=== PATIENT | male | born 1975 | race African-American/Black ===

== ENCOUNTER 2017-12-10 06:33 | Emergency (ER) | payer OTHER ==
[~2017-12-10] VITALS: Ht 144.8 cm; Wt 65.8 kg
[2017-12-10 06:40] VITALS: BP 134/78
[2017-12-10] MEDS ORDERED: CYCLOBENZAPRINE 10 MG TABLET PO ONE ×2 (07:00→07:30)
[2017-12-10] MEDS ORDERED: IBUPROFEN 400 MG TABLET PO ONE ×2 (07:00→07:30)
[2017-12-10] MEDS ORDERED: IBUPROFEN 400 MG TABLET ONE (07:05)
[2017-12-10] MEDS ORDERED: CYCLOBENZAPRINE 10 MG TABLET ONE (07:05)
--- NOTE | 2017-12-10 07:23 | NUR ---
REPORT GIVEN TO ABIEL TOBIAS FOR [place].
== END 2017-12-10 07:52 | disposition home or self-care (01) ==
LOC: ER 06:38
DX: M54.42 Lumbago with sciatica, left side (principal); G89.29 Other chronic pain; F41.9 Anxiety disorder, unspecified
CPT/HCPCS: 99283; A4606; Z7610

== ENCOUNTER 2022-04-18 03:46 | Emergency (ER) | payer OTHER ==
[~2022-04-18] VITALS: Ht 162.6 cm; Wt 57.2 kg
[2022-04-18 03:55] VITALS: BP 111/68
[2022-04-18] MEDS ORDERED: IBUPROFEN 400 MG TABLET ONE (04:50)
[2022-04-18] MEDS ORDERED: IBUPROFEN 400 MG TABLET PO ONE (05:00)
== END 2022-04-18 05:32 | disposition home or self-care (01) ==
LOC: ER 03:51
DX: G89.29 Other chronic pain (principal); M54.50 Low back pain, unspecified; F41.9 Anxiety disorder, unspecified; Z60.2 Problems related to living alone